=== PATIENT | female | born 1980 | race Caucasian/White ===

== ENCOUNTER 2022-07-21 12:23 | Outpatient (REF) | payer OTHER, SELFPAY ==
[2022-07-21 13:07] LABS: COVID-19 Test Negative (Negative); IDNOW Serial# 9DB6401D
== END 2022-07-21 12:24 | disposition home or self-care (01) ==
LOC: HO.LAB 12:23
PROVIDERS: Visit Provider Internal Medicine
DX: Z20.822 Contact with and (suspected) exposure to COVID-19 (principal)
CPT/HCPCS: 87635; C9803